=== PATIENT | female | born 1950 | race Caucasian/White ===

== ENCOUNTER 2023-06-14 09:41 | Emergency (ER) | payer OTHER ==
[~2023-06-14] VITALS: Ht 165.1 cm; Wt 59.1 kg
[2023-06-14 10:11] VITALS: BP 151/84; PULSE 67; RESP 14; O2SAT 99
== END 2023-06-14 12:38 | disposition home or self-care (01) ==
LOC: ER 09:41
DX: S92.331A Displaced fracture of third metatarsal bone, right foot, initial encounter for closed fracture (principal); S93.401A Sprain of unspecified ligament of right ankle, initial encounter; Z88.1 Allergy status to other antibiotic agents; Z79.2 Long term (current) use of antibiotics; W10.9XXA Fall (on) (from) unspecified stairs and steps, initial encounter; Y93.89 Activity, other specified; Y92.89 Other specified places as the place of occurrence of the external cause; Y99.8 Other external cause status
CPT/HCPCS: 29540; 73610; 73630; 99284; L1930; L3260